=== PATIENT | female | born 1980 | race Caucasian/White ===

== ENCOUNTER 2020-03-17 12:28 | Emergency (ER) | payer BC, SELFPAY ==
--- NOTE | ~2020-03-17 | US_ITS ---
EXAMINATION: US right upper quadrant DATE: 03/17/2020 13:41 INDICATION: Right upper quadrant pain TECHNIQUE: Multiple grayscale and Doppler ultrasound images of the abdomen were obtained. COMPARISON: None available FINDINGS: Bowel gas obscures visualization of the pancreas. The visualized portions of the pancreas a re unremarkable. The liver demonstrates increased echogenicity, heterogenous echotexture, and decreas ed through transmission. No surface nodularity. Normal hepatopetal flow in the main portal vein. The gallbladder is normal with no abnormal wall thickening, pericholecystic fluid or stones. The normal c ommon bile duct measures 4 mm. There was no sonographic Haas sign. IMPRESSION: 1. No sonographic correlate for the patient's symptoms. 2. Diffuse hepatic steatosis. Reviewed, dictated and finalized at [facility].
--- NOTE | ~2020-03-17 | CT_ITS ---
EXAMINATION: CT abdomen pelvis w con DATE: 03/17/2020 14:40 INDICATION: Right upper quadrant abdominal pain TECHNIQUE: Computed tomography (CT) of the abdomen and pelvis was performed with 100 cc Omnipaque 350 intravenous contrast. Automated exposure control and iterative reconstruction technique were employe d. Exam dose: 1513.65 mGy-cm total exam DLP. COMPARISON: 03/17/2020 right upper quadrant abdominal ultrasound examination FINDINGS: Normal heart size. No pericardial or pleural effusion. The lung bases are clear. Normal hea rt size. Trace pericardial fluid. There is diffuse fatty infiltration of the liver. No hepatic space-occupying mass lesion is evident. The gallbladder appears normal. No bile duct or pancreatic duct dilatation. No pancreatic mass lesion or calcification is evident. Splenic size is normal. 1.4 cm left adrenal mass; if there is no history of malignancy, this most likely an adrenal adenoma. Normal right adrenal gland. 1.3 cm right renal cyst. Small solitary focal scars of each kidney are identified. Approximately 2.5 by 3.5 mm lower pole nonobstructing right renal calculus. No other urinary tract ca lculus or hydroureteronephrosis. The urinary bladder, uterus and adnexal areas are unremarkable. Surgical clips are noted in the pelvi s. Included skeletal structures are unremarkable. IMPRESSION: Nonobstructing right renal calculus 1.3 cm right renal cysts Mild bilateral renal scarring Hepatic steatosis Reviewed, dictated and finalized at [facility]. Reviewed, dictated and finalized at location [facility].
[2020-03-17 12:40] VITALS: BP 130/54; BP 132/76; PULSE 72; PULSE 79; RESP 18; RESP 19; TEMP 36.4; TEMP 36.6; O2SAT 100; O2SAT 99
--- NOTE | 2020-03-17 12:59 | ED.ABDPAIN ---
HPI - Abdominal Pain General Chief Complaint: Abdominal Pain Stated Complaint: RUQ PAIN Time Seen by Provider: 03/17/20 12:31 Source: RN notes reviewed History of Present Illness HPI narrative: Patient presents emergency department from home for abdominal pain. Patient states she is been having pain in the right upper quadrant of the abdomen for the past 1 month intermittently. Patient states the pain does occur daily and does radiate to the right shoulder blade. She denies any other associated symptoms. States nothing seems to make the pain better or worse. Denies any fevers or chills chest pain shortness of breath nausea vomiting diarrhea. Patient request no pain medication at this time Related Data Home Medications Medication Instructions Recorded Confirmed doxycycline hyclate 100 mg PO 03/17/20 levothyroxine 88 mcg PO 03/17/20 thyroid (pork) [[place] Thyroid] 60 mg PO 03/17/20 Allergies Allergy/AdvReac Type Severity Reaction Status Date / Time rifaximin Allergy Hives Verified 03/17/20 12:44 Review of Systems Review of Systems: Narrative: Gen.: Denies fevers or chills ENT: Denies congestion Respiratory: Denies shortness of breath or cough CV: Denies chest pain or palpitations GI: See HPI Musculoskeletal: Denies back pain or muscle pain Neuro: Denies numbness, tingling, weakness or focal weakness Skin: Denies rash Except as documented, all other systems reviewed and negative [facility] Past Medical History Medical History (Updated 03/17/20 @ 15:16 by Benjamin Hall DO) Hypothyroidism Social History Social History (Updated 03/17/20 @ 13:00 by Benjamin Hall DO) Smoking status: Never smoker Gender identity (if verbalized by the patient): Female Exam Narrative: Exam Narrative: APPEARANCE: No acute distress, nontoxic, resting in bed HEENT: Normocephalic, atraumatic, OMM RESPIRATORY: No respiratory distress, clear to auscultation bilaterally with no rhonchi wheezing or rales CARDIOVASCULAR: RRR s murmur ABDOMINAL: Soft, obese, tender palpation right upper quadrant, no tenderness left upper quadrant, right lower quadrant left lower quadrant, no rebound or guarding MUSCULOSKELETAl: Moves all extremities. No clubbing, cyanosis or edema. NEURO: Awake and alert. Following commands, speech normal, no focal deficits SKIN:: Warm, dry. Normal Color PSYCHIATRIC: Normal affect/mood Course Course Emergency Course: Patient states that they are feeling much better at this time. States abdominal pain has improved. Repeat abdominal exam shows the patient's abdomen to be s very low as no surgical abdomen present discussed with patient results of workup and diagnosis. Discussed need for follow-up with primary care physician, reasons to return to the emergency department in proper use of medication. Patient understands and agrees to current treatment plan. Discussed patient plan for follow-up as an outpatient with PCP and need for possible HIDA scan Vital Signs Vital signs: Vital Signs Temperature 97.5 F L 03/17/20 12:40 Pulse Rate 79 03/17/20 12:40 Respiratory Rate 19 03/17/20 12:40 Blood Pressure 132/76 03/17/20 12:40 Pulse Oximetry 99 03/17/20 12:40 Temperature 97.8 F 03/17/20 12:40 Pulse Rate 72 03/17/20 12:40 Respiratory Rate 18 03/17/20 12:40 Blood Pressure 130/54 L 03/17/20 12:40 Pulse Oximetry 100 03/17/20 12:40 MDM - Abdominal Pain Lab Data Result diagrams: 03/17/20 12:49 03/17/20 12:49 Labs: Lab Results 03/17/20 03/17/20 03/17/20 Range/Units 12:49 12:49 12:54 WBC 8.5 (4.5-10.0) K/mm3 RBC 5.66 H (4.2-5.4) M/mm3 Hgb 15.3 H (12.0-15.0) g/dL Hct 47.2 H (37.0-47.0) % MCV 83.4 (80-100) fl MCH 27.0 (26-34) pg MCHC 32.4 (32-36) g/dl RDW 13.3 (11.5-14.5) % Plt Count 232 (150-375) k/mm3 MPV 12.0 H (7.4-10.4) fl Immature Gran % (Auto) 0.4 (0-0.5) % Neut % (Auto) 61.6 (45
[2020-03-17 13:03] LABS: Basophils Absolute Auto 0.1 K/mm3 (0.0-0.1); Basophils Percent Auto 0.7 % (0.2-1.2); Eosinophils Absolute Auto 0.1 K/mm3 (0-0.3); Eosinophils Percent Auto 1.5 % (0-4.4); Hematocrit 47.2 % (37.0-47.0); Hemoglobin 15.3 g/dL (12.0-15.0); Immature Granulocyte Absolute 0.03 K/mm3 (0.00-0.031); Immature Granulocyte Percent A 0.4 % (0-0.5); Immature Platelet Fraction Pct 11.8 % (0.9-11.2); Lymphocytes Absolute Auto 2.41 K/mm3 (0.9-3.2); Lymphocytes Percent Auto 28.4 % (18.3-44.2); Mean Corpuscular HGB Conc 32.4 g/dl (32-36); Mean Corpuscular Volume 83.4 fl (80-100); Monocytes Absolute Auto 0.6 K/mm3 (0.1-0.6); Monocytes Percent Auto 7.4 % (2.6-8.5); Neutrophils Absolute Auto 5.2 K/mm3 (1.3-6.7); Neutrophils Percent Auto 61.6 % (45.5-73.1); Platelet Count Result 232 k/mm3 (150-375); Red Blood Count 5.66 M/mm3 (4.2-5.4); Red Cell Distribution Width 13.3 % (11.5-14.5); White Blood Count 8.5 K/mm3 (4.5-10.0)
[2020-03-17 13:08] LABS: Add Urine Microscopic? YES; Appearance Urine Clear (Clear); Bacteria Urine Trace /hpf; Bilirubin Urine Negative (Negative); Blood Urine 1+ (Negative); Color Urine Yellow (Yellow); Glucose Urine UA Negative (Negative); Ketones Urine Negative (Negative); Leukocyte Esterase Ur Negative LEU/UL (Negative); Mucus Urine Rare /lpf; Nitrate Urine Negative (Negative); Protein Urine Negative (Negative); RBC Urine 0-2 /hpf (0-2); Specific Grav Ur 1.024 (1.001-1.035); Squamous Epithelial Cell Urine Occasional /hpf (Few); Urobilinogen Urine Negative mg/dL (<2.0); WBC Urine 0-3 /hpf
[2020-03-17 13:16] LABS: Alanine Aminotransferase 39 U/L (4-35); Albumin Level 4.8 g/dL (3.5-5.1); Alkaline Phosphatase 112 U/L (38-126); Aspartate Amino Transferase 38 U/L (14-36); Bilirubin,Total 0.6 mg/dL (0.2-1.3); Blood Urea Nitrogen 12 mg/dL (7-17); Calcium 9.3 mg/dL (8.4-10.2); Carbon Dioxide 28 mmol/L (22-30); Chloride 103 mmol/L (98-107); Estimated CRCL calculation 117 ml/min; Estimated Glomerular Filt Rate > 60; Glucose 94 mg/dL (65-105); Lipase 89 U/L (23-300); Potassium 4.1 mmol/L (3.4-5.0); Sodium 140 mmol/L (137-145)
== END 2020-03-17 15:25 | disposition home or self-care (01) ==
PROVIDERS: Emergency Provider Emergency Medicine
DX: R10.11 Right upper quadrant pain (principal); E03.9 Hypothyroidism, unspecified; K76.0 Fatty (change of) liver, not elsewhere classified; N28.1 Cyst of kidney, acquired; N20.0 Calculus of kidney
CPT/HCPCS: 36415; 74177; 76705; 80053; 81001; 81025; 83690; 85025; 85055; 99284; Q9967